=== PATIENT | female | born 1945 | race Caucasian/White ===

== ENCOUNTER 2018-08-10 11:14 | Emergency (ER) | payer BC ==
[2018-08-10 11:19] VITALS: TEMP 98.2; BMI 24.4
--- NOTE | 2018-08-10 11:19 | PDOC ---
History of Present Illness - General Chief Complaint: Weakness Stated Complaint: WEAKNESS Time Seen by Provider: 08/10/18 11:18 - History of Present Illness Initial Comments: 08/10/18 12:07 The patient is a 73 year old female with a history of HTN, HLD, Hypothyroidism who presents for evaluation of palpitations and SOB. The patient reports a 2 day history of palpitations and intermittent shortness of breath prompting her presentation to the ED for further evaluation. She notes that her symptoms worsen with caffeine and nicotine, but denies any dyspnea on exertion. She notes that her symptoms appear to have improved today. She otherwise denies fevers, chills, chest pain, cough, nausea, vomiting, abdominal pain, or changes with urination or bowel movements. Past History - Past Medical History Allergies/Adverse Reactions: Allergies Allergy/AdvReac Type Severity Reaction Status Date / Time No Known Allergies Allergy Verified 08/10/18 11:15 Home Medications: Ambulatory Orders Aspirin [ASA -] 162 mg PO DAILY 08/10/18 Levothyroxine [Synthroid -] 75 mcg PO DAILY 08/10/18 Simvastatin [Zocor] 10 mg PO HS 08/10/18 Triamterene/Hydrochlorothiazid [Triamterene-Hctz 37.5-25 mg Cp] 1 each PO DAILY 08/10/18 Cardiac Disorders: (CAROTID ARTERY PLAQUE) COPD: No GI Disorders: Yes (HEMMORHOIDS) HTN: Yes Hypercholesterolemia: Yes Thyroid Disease: Yes - Suicide/Smoking/Psychosocial Hx Smoking History: Current every day smoker Have you smoked in the past 12 months: Yes Number of Cigarettes Smoked Daily: 20 Information on smoking cessation initiated: Yes 'Breaking Loose' booklet given: 08/10/18 Hx Alcohol Use: No Drug/Substance Use Hx: No Substance Use Type: None Review of Systems - Review of Systems Comments:: 08/10/18 12:10 Constitutional: No fevers, chills, fatigue, malaise HEENT: No Rhinorrhea, nasal congestion, visual changes Cardiovascular: Palpitations. No chest pain, syncope, lightheadedness Respiratory: SOB. No Cough, Hemoptysis, Gastrointestinal: No Abdominal pain, Nausea, Vomiting, Constipation, Diarrhea, Melena Genitourinary: No Dysuria, Frequency, Urgency, Hesitancy, Hematuria, Flank pain Musculoskeletal: No Myalgia, arthralgia Skin: No rashes, itching, bruising, pallor Neurologic: No Headache, Dizziness, Numbness, Weakness, or Tingling Psychiatric: No Hallucinations. No SI or HI *Physical Exam - Vital Signs Last Vital Signs Temp Pulse Resp BP Pulse Ox 98.2 F 80 17 157/79 96 08/10/18 11:15 08/10/18 11:15 08/10/18 11:15 08/10/18 11:15 08/10/18 11:15 - Physical Exam Comments: 08/10/18 12:10 General Appearance: Nourished. No Apparent Distress HEENT: No Pharyngeal Erythema, Tonsillar Exudate, Tonsillar Erythema Neck: No Cervical Lymphadenopathy Respiratory/Chest: Normal Breath Sounds. Faint end expiratory wheezing noted bilaterally on exam. No Crackles, Rales, Rhonchi, Cardiovascular: Regular Rhythm, Regular Rate. No Murmur, Gallops, Rubs Gastrointestinal/Abdominal: Normal Bowel Sounds, Soft. No Guarding, Rebound, Tenderness Musculoskeletal: No CVA Tenderness Extremity: Normal Capillary Refill Integumentary: Normal Color, Dry, Warm Neurologic: Fully Oriented, Alert, Normal Mood/Affect, Normal Response, Heart Score/ECG Review #1 ECG reviewed & interpreted by me at: 12:11 General ECG Interpretation: Sinus Rhythm, Normal Rate, Normal Intervals, No acute ischemic changes 08/10/18 12:11 HR 67 QRS 68 QTc 435 Sinus rhythm with 1st degree AV Block ED Treatment Course - LABORATORY CBC & Chemistry Diagram: 08/10/18 11:56 08/10/18 11:56 Medical Decision Making - Medical Decision Making 08/10/18 12:13 The patient is a 73 year old female with a history of HTN, HLD, Hypothyroidism who presents for evaluation of palpitations and SOB. Differential includes but is not limited to: ACS, COPD, Thyroid disfunction, Arrhythmia, Infectious, Metabolic Derangement. Given the patient's history and physical exam, we will obtain a cbc, cmp, tsh, troponin, ekg, chest plain film to evaluate further. We will continue to monitor and reassess while here in the ED. 08/10/18 13:35 CBC, cmp, troponin are unremarkable. Chest plain film is unremarkable. The patient continues to appear clinically well on exam. We are comfortable discharging the patient home with primary care provider follow up for holter monitoring. We discussed the results, plan, and return precautions with the patient who voiced understanding and is agreeable with the plan. *DC/Admit/Observation/Transfer Diagnosis at time of Disposition: Palpitation - Discharge Dispostion Disposition: HOME Condition at time of disposition: Stable Decision to Admit order: No - Referrals Referrals: Jony Almodovar MD [Primary Care Provider] - - Patient Instructions Printed Discharge Instructions: DI for Palpitations Additional Instructions: Please return to the ER if you experience concerning or worsening symptoms including worsening difficulty breathing, weakness, or chest pain. Please discuss getting a holter monitor with your primary care provider. Your lab results were normal here in the ER. Please call to schedule a follow up appointment with your primary care provider within 2-3 days to discuss your ER visit and further management of your symptoms. - Post Discharge Activity
[2018-08-10 12:14] LABS: BASO % 0.4 % (0-2.0); HEMATOCRIT 45.2 % (32.4-45.2); HEMOGLOBIN 14.8 GM/dl (10.7-15.3); LYMPH % 19.2 % (8-40); MCH 28.5 pg (25.7-33.7); MCHC 32.8 g/dl (32.0-36.0); MEAN CELL VOLUME 86.7 fl (80-96); MEAN PLT VOLUME 8.4 fl (7.5-11.1); NEUT % 73.4 % (42.8-82.8); PLATELET COUNT 197 K/MM3 (134-434); RBC 5.21 M/mm3 (3.60-5.2); RDW 14.5 % (11.6-15.6); WHITE BLOOD COUNT 4.2 K/mm3 (4.0-10.8)
[2018-08-10 12:33] LABS: ALK PHOS 54 U/L (32-92); ANION GAP 8 MMOL/L (8-16); BILIRUBIN,TOTAL 0.6 mg/dl (0.2-1.0); BLOOD UREA NITROGEN 18 mg/dl (7-18); CALCIUM 9.3 mg/dl (8.4-10.2); CHLORIDE 95 mmol/L (98-107); CO2 32 mmol/L (22-28); CREATININE 0.8 mg/dl (0.6-1.3); GLUCOSE,RANDOM 92 mg/dl (74-106); POTASSIUM 3.7 mmol/L (3.5-5.1); SGOT/AST 26 U/L (10-42); SGPT/ALT 23 U/L (10-40); SODIUM 135 mmol/L (136-145); TOT PROT 6.9 g/dl (6.4-8.3)
[2018-08-10 12:34] LABS: MAGNESIUM 2.1 mg/dL (1.8-2.4)
--- NOTE | 2018-08-10 12:48 | PDOC ---
Attending Attestation - Resident Resident Name: Danile De La Oel - ED Attending Attestation I have performed the following: I have examined & evaluated the patient, The case was reviewed & discussed with the resident, I agree w/resident's findings & plan - HPI HPI: 08/10/18 12:42 73-year-old female with history of hypertension, likely COPD with long-standing smoking history presents with several days of intermittent palpitations and jittery sensation, improved/resolved today. Patient notes increased caffeine intake with tea, has noted brief episodes of palpitations with a jittery sensation, resolved after a few minutes. No associated chest pain or syncope, not exacerbated by exertion. Today, the patient lowered her caffeine intake and has no symptoms. Denies any cardiopulmonary history, no new cough or dyspnea on exertion, no leg swelling. No recent weight loss or weight gain, no heat intolerance. Denies excessive alcohol use. - Physicial Exam PE: 08/10/18 12:44 Vital signs normal well appearing speaking full sentences no jvd heart regular with a single pvc noted on monitor during exam, pt Asymptomatic. no murmur coarse at bases with end expiratory wheeze in upper lung soler b/l, no prolonged expiration no edema/calf ttp - Medical Decision Making 08/10/18 12:45 73y/o F with transient episodes of nonexertional palpitations and jittery feeling over the last few days, resolved today. r/o arrythmia or electrolyte imbalance, unlikely acs. EKG wnl, no ectopy recorded check labs, tsh, cxr if above wnl and feels well, can schedule outpt holter monitoring with Dr. Almodovar
[2018-08-10 13:37] VITALS: BP 143/90; PULSE 69
--- NOTE | 2018-08-12 15:09 | EKG ---
Test Reason : Blood Pressure : / mmHG Vent. 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
== END 2018-08-10 13:37 | disposition home or self-care (01) ==
LOC: FER 11:14
DX: R00.2 Palpitations (principal); I10 Essential (primary) hypertension; E78.5 Hyperlipidemia, unspecified; E03.9 Hypothyroidism, unspecified
CPT/HCPCS: 36415; 71045-TC-FY; 80053; 82550; 83735; 84443; 84484; 85025; 93005; 99283-25

== ENCOUNTER 2021-08-22 11:37 | Emergency (ER) | payer BC ==
[2021-08-22 11:47] VITALS: BP 173/86; PULSE 88; TEMP 98; BMI 23.6
== END 2021-08-22 13:40 | disposition home or self-care (01) ==
LOC: FER 11:37
DX: S93.401A Sprain of unspecified ligament of right ankle, initial encounter (principal)
CPT/HCPCS: 73610-TC-RT-FY; 73630-TC-RT-FY; 99284-25

== ENCOUNTER 2024-07-27 09:49 | Day surgery (SDC) | payer BC ==
[2024-07-25 15:20] VITALS: BMI 25.2
[2024-07-27] MEDS ORDERED: MIDAZOLAM HCL 2 MG/2 ML SINGLE DOSE VIAL ONE (09:56)
[2024-07-27] MEDS: TROPICAMIDE 1% OPHTH SOLN 15 ML BOTTLE ONE (10:45)
[2024-07-27] MEDS: CIPROFLOXACIN 0.3% EYE DROPS 5 ML BOTTLE ONE (10:45)
[2024-07-27] MEDS: CYCLOPENTOLATE 2% OPHTH SOLN 2 ML BOTTLE ONE (10:45)
[2024-07-27] MEDS: PHENYLEPHRINE 2.5% OPTHALMIC DROP 2ML BOTTLE ONE (10:45)
[2024-07-27] MEDS ORDERED: NEO/POLYMYX B SULF/DEXAMETH OPHTHALMIC 5ML BOTTLE ONE (10:56)
[2024-07-27] MEDS ORDERED: LIDOCAINE 1% P/F 10 MG/ML VIAL ONE (10:56)
[2024-07-27] MEDS ORDERED: BSS (NA/CA/MG/K) BALANCED SALT SOLUTION OPHTH SOLN 15 ML BOTTLE ONE (10:56)
[2024-07-27] MEDS ORDERED: TETRACAINE 0.5% OPHTH SOLN 2 ML BOTTLE ONE (10:56)
[2024-07-27] MEDS ORDERED: CARBACHOL 0.01% INTRA-OCULAR 1.5 ML VIAL ONE (10:56)
[2024-07-27 12:12] VITALS: TEMP 97.3
[2024-07-27 12:45] VITALS: BP 132/70; PULSE 69; RESP 18
== END 2024-07-27 12:33 | disposition home or self-care (01) ==
LOC: FASU 09:49
PROVIDERS: ATTEND Ophthalmology
PROC: 08RJ3JZ Replacement of Right Lens with Synthetic Substitute, Percutaneous Approach (ICD-10-PCS; principal; 2024-07-27 11:33)
DX: H26.8 Other specified cataract (principal)
CPT/HCPCS: 66984; V2632